=== PATIENT | female | born 1995 | race Two or more races ===

== ENCOUNTER 2018-04-15 06:00 | Inpatient (IN) | payer OTHER ==
[2018-04-15] MEDS ORDERED: PENICILLIN G POTASSIUM 5,000,000 UNIT in DEXTROSE 5% IN WATER 100 ML IVPB STA ×2 (06:14)
[2018-04-15] MEDS ORDERED: METHYLERGONOVINE 0.2 MG/ML 1 ML AMP IM PRN (06:14)
[2018-04-15] MEDS ORDERED: LIDOCAINE 0.5% (PF) 5 MG/ML (50 ML SDV) SQ PRN (06:14)
[2018-04-15] MEDS ORDERED: CARBOPROST TROMETHAMINE 250 MCG/ML 1 ML AMP IM PRN (06:14)
[2018-04-15] MEDS ORDERED: OXYTOCIN 10 UNIT/ML 1 ML VIAL IM PRN (06:14)
[2018-04-15] MEDS ORDERED: TERBUTALINE 1 MG/ML VIAL SQ PRN (06:14)
[2018-04-15] MEDS ORDERED: OXYTOCIN 20 UNITS/1000 ML NS 1,000 ML IV SCH (06:15)
[2018-04-15] MEDS: LACTATED RINGERS 1,000 ML IV SCH ×5 (06:17→17:39)
[2018-04-15 06:21] VITALS: BMI 40.4
[2018-04-15 06:46] LABS: Basophils % (A) 0 %; Eosinophils # (A) 0.1 k/uL (0-0.7); Eosinophils % (A) 1 %; HCT 38.5 % (34.0-46.0); HGB 13.3 gm/dL (11.4-16.0); Lymphocytes # (A) 1.8 k/uL (1.0-4.8); Lymphocytes % (A) 20 %; MCHC 34.6 g/dL (31.0-37.0); MCV 89.5 fL (80.0-100.0); Mean Platelet Volume 7.9; Monocytes # (A) 0.5 k/uL (0-1.0); Monocytes % (A) 5 %; Neutrophils # (A) 6.5 k/uL (1.3-7.7); Neutrophils % (A) 73 %; Platelet Count 241 k/uL (150-450); RDW 13.7 % (11.5-15.5); WBC 8.9 k/uL (3.8-10.6)
--- NOTE | 2018-04-15 07:13 | P.HPOB ---
History of Present Illness H&P Date: 04/15/18 This is a 23-year-old white female 1 para 0 EDC 04/19/2018 at 39-3/7 weeks' gestation. Patient presents today for induction electively, mild spontaneous uterine contractions are noted. Cervix is favorable. Fetus is been active throughout the . She denies vaginal bleeding or fluid leakage. Past medical history is significant for asthma, fibromyalgia, and obesity. Past surgical history is negative. Current medications vitamins daily, albuterol inhaler as needed. ALLERGIES none known. Family history significant strongly for diabetes, hypercholesterolemia, hypertension. Also significant for lung cancer. Social history patient has never been a smoker, she denies alcohol or drug use. She is and her 's presence. Obstetric history is significant for blood type A+, rubella status immune. VDRL testing, urine culture, hepatitis B surface antigen, HIV testing, gonorrhea and chlamydia cultures all negative. One-hour Glucola elevated at 172 , 3 hour GTT within normal limits. Group B strep cultures positive. On exam this is a pleasant young female, 4 foot 11 inches, 200 pounds, blood pressure 130/71 on admission, vital signs are otherwise stable. The general physical exam is within normal limits. The cervix is 4 cm dilated, 70% effaced , -2 station, vertex presentation. Artificial amniorrhexis reveals dark but thin meconium-stained fluid, non-particulate. Internal scalp lead is applied. heart rate is in the 140s with frequent accelerations consistent with reactive NST. Uterine contractions are occurring every 2 minutes apart. Impression: 39-3/7 weeks intrauterine , here for an induction with favorable cervix. Meconium-stained fluid, reassuring heart tones. Plan: Penicillin G prophylaxis for history of group B strep positive cultures. Oxytocin augmentation per hospital protocol. Close maternal and surveillance. Anticipate normal spontaneous vaginal delivery. Review of Systems Constitutional: Reports as per HPI Past Medical History Past Medical History: Asthma, Fibromyalgia History of Any Multi-Drug Resistant Organisms: None Reported Past Surgical History: No Surgical Hx Reported Past Anesthesia/Blood Transfusion Reactions: No Reported Reaction Past Psychological History: No Psychological Hx Reported Smoking Status: Never smoker Past Alcohol Use History: None Reported Past Drug Use History: None Reported - Past Family History Father Family Medical History: Hypertension, Osteoarthritis (OA) Additional Family Medical History / Comment(s): type 2 diabetes Mother Family Medical History: Asthma, Cancer, Hyperlipidemia, Osteoarthritis (OA) Additional Family Medical History / Comment(s): type 2 diabetes Sister(s) Family Medical History: Hypertension Additional Family Medical History / Comment(s): type 2 diabetes Brother(s) Family Medical History: Hypertension Additional Family Medical History / Comment(s): type 2 diabetes Medications and Allergies Home Medications Medication Instructions Recorded Confirmed Type Albuterol Sulfate [Proair Hfa] 2 puff INHALATION Q4HR PRN 04/21/14 04/15/18 History Allergies Allergy/AdvReac Type Severity Reaction Status Date / Time Mushroom Allergy Severe Anaphylaxis Verified 04/15/18 06:23 Exam Vital Signs Temp Pulse Resp BP Pulse Ox 04/15/18 06:16 98.1 F 83 16 130/71 98 Intake and Output 04/14/18 04/15/18 04/15/18 22:59 06:59 14:59 Other: Weight 90.718 kg See dictation under HPI. Results Result Diagrams: 04/15/18 06:20 Assessment and Plan Assessment: 39-3/7 weeks intrauterine , meconium-stained fluid, elective induction , positive group B strep cultures. Plan: Penicillin G prophylaxis per hospital protocol. Close maternal and surveillance. I have reviewed with the patient analgesic options to be utilized as needed. Continue oxytocin per hospital protocol. Anticipate normal spontaneous vaginal delivery. Time with Patient: Less than 30
[2018-04-15] MEDS ORDERED: ROPIVACAINE 100 MG, fentaNYL (PF) 200 MCG in SODIUM CHLORIDE 0.9% 76 ML EPIDURAL ONE (09:36)
[2018-04-15] MEDS: PENICILLIN G POTASSIUM 2,500,000 UNIT in DEXTROSE 5% IN WATER 100 ML IVPB SCH ×4 (11:09→14:09)
[2018-04-15] MEDS ORDERED: METHYLERGONOVINE 0.2 MG/ML 1 ML AMP ONE (15:00)
[2018-04-15] MEDS ORDERED: ONDANSETRON 4 MG/2 ML VIAL ONE (15:00)
[2018-04-15] MEDS ORDERED: MORPHINE SULFATE (PF) 0.3 MG/0.3 ML SYR ONE (15:00)
[2018-04-15] MEDS ORDERED: OXYTOCIN 10 UNIT/ML 1 ML VIAL ONE (15:00)
[2018-04-15] MEDS ORDERED: diphenhydrAMINE 25 MG CAP PO PRN (15:48)
[2018-04-15] MEDS ORDERED: HYDROcodone/APAP 5-325MG 1 EACH TAB PO PRN (15:48)
[2018-04-15] MEDS ORDERED: diphenhydrAMINE 50 MG CAP PO PRN (15:48)
[2018-04-15] MEDS ORDERED: NALOXONE 0.4 MG/ML 1 ML VIAL IV PRN (15:48)
[2018-04-15] MEDS ORDERED: METOCLOPRAMIDE 5 MG/ML 2 ML VIAL IVP PRN (15:48)
[2018-04-15] MEDS ORDERED: ONDANSETRON 4 MG/2 ML VIAL IVP PRN (15:48)
[2018-04-15] MEDS ORDERED: ZOLPIDEM 5 MG TAB PO PRN (15:48)
[2018-04-15] MEDS ORDERED: diphenhydrAMINE 50 MG/ML 1 ML VIAL IVP PRN ×2 (15:48)
[2018-04-15] MEDS ORDERED: ACETAMINOPHEN TAB 325 MG TAB PO PRN (15:48)
--- NOTE | 2018-04-15 15:48 | P.OP ---
Date of Procedure: 04/15/18 Preoperative Diagnosis: Arrest of dilation and descent, 39-3/7 weeks, meconium-stained fluid. Postoperative Diagnosis: Liveborn female infant, occiput posterior, nuchal cord 1 Procedure(s) Performed: Primary low transverse section Anesthesia: spinal Surgeon: Mindy العلي Clinical Appeals Reviewer #1: Anh Lacy Estimated Blood Loss (ml): 600 IV fluids (ml): 400 Urine output (ml): 100 Pathology: other (Placenta) Condition: stable Disposition: PACU Operative Findings: Liveborn female , meconium-stained, occiput posterior, darkly stained placenta, nuchal cord 1. Description of Procedure: This is a 23-year-old female 1 para 0 EDC 04/19/2018 at 39-3/7 weeks' gestation. Patient was admitted for induction for favorable cervix. is remarkable for positive group B strep cultures, rubella status immune, blood type A positive. Please see dictated history and physical for details. Artificial amniorrhexis revealed darkly stained meconium fluid. Internal scalp lead was applied. Pcaq-rl-[id number] variability was excellent, however patient did have episodes of late decelerations that responded to position changes and fluid bolus. She requested an epidural and this was placed without difficulty. She became 5 cm dilated, 80-90% effaced, -2 station. No further cervical dilation was noted over the course of 4 hours observation. Uterine contractions continued every 2-3 minutes apart of strong intensity. The decision was made to proceed with primary low transverse section. The previously placed epidural was topped off. Patient had been given 3 doses total of penicillin G for group B strep prophylaxis. 2 g of Ancef were given preoperatively. The abdomen was prepped and draped in the usual sterile fashion. Stout catheter placed to direct drainage. Appropriate timeout is performed. A low transverse skin incision is made in this is carried down through the subcutaneous tissue to the fascia. Fascia is isolated, scored and extended bilaterally with curved Rodriguez scissors. Peritoneum is next identified and incised, there is no bowel or bladder involvement. Bladder blade is placed over the dome of the bladder and at all times the bladder is Well from the operative field to avoid bladder and/or ureteral injury. Uterus is entered in the transverse position, the incision is extended bluntly. 's head is delivered straight occiput posterior with a large amount of It. The oropharynx, nasopharynx, and external nares were all bulb suctioned on the abdomen. Patient is officially delivered of a liveborn female at 1510 hours. The umbilical cord is doubly clamped and ligated, she is handed to waiting nurses for evaluation where scores of 8 and 9 at one and 5 minutes respectively are given. The placenta is delivered manually, it is inspected and noted to be intact with trivascular cord at 1511 hours. At this time the uterus is externalized. It is wiped clean with a sterile sponge to avoid any retained products of conception. It is somewhat boggy, and therefore in addition to the Pitocin, Methergine is given IM 1. Uterine massage was also performed. Uterine incision is grasped with Moon clamps and the uterus is closed in a two-step fashion. First layer is running locking, second layer indicated, both with 0 Vicryl. Excellent hemostasis is noted. Bilateral tubes and ovaries are inspected, and noted to be within the normal limits. Uterus is gently placed back into the abdominal cavity after the abdomen is suctioned with suction on guard. Bilateral gutters are inspected and cleaned. Peritoneum was allowed to close by secondary intention. Fascia is closed in a running stitch of 0 Vicryl with over ligation in the midline. Subcutaneous tissue is generously irrigated. It is clean and dry. 3-0 Vicryl is used in a running manner to reapproximate the subcutaneous tissue. Subcuticular stitch of 4-0 undyed Vicryl issues for final skin closure. Steri-Strips and Mastisol are applied to the wound. Uterus is massaged. All sponge needle and enhancement counts are correct. Stout is noted to be draining clear urine. Patient is brought back to recovery room in stable condition with a blood pressure 116/70, pulse 86, 96% O2 saturation.
[2018-04-15] MEDS: SENNOSIDES-DOCUSATE SODIUM 1 EACH TAB PO SCH (20:04)
[2018-04-16] MEDS: LACTATED RINGERS 1,000 ML IV SCH ×2 (01:26→19:28)
[2018-04-16] MEDS: KETOROLAC 30 MG/ML 1 ML VIAL IVP PRN ×2 (04:48→13:29)
[2018-04-16 08:28] LABS: Basophils % (A) 0 %; Eosinophils % (A) 0 %; HGB 10.7 gm/dL (11.4-16.0); Lymphocytes # (A) 1.5 k/uL (1.0-4.8); Lymphocytes % (A) 11 %; MCH 30.3 pg (25.0-35.0); MCHC 33.4 g/dL (31.0-37.0); MCV 90.5 fL (80.0-100.0); Mean Platelet Volume 8.4; Monocytes # (A) 0.5 k/uL (0-1.0); Monocytes % (A) 4 %; Neutrophils # (A) 11.6 k/uL (1.3-7.7); Neutrophils % (A) 84 %; Platelet Count 180 k/uL (150-450); RBC 3.54 m/uL (3.80-5.40); RDW 13.9 % (11.5-15.5); WBC 13.8 k/uL (3.8-10.6)
[2018-04-16] MEDS: SENNOSIDES-DOCUSATE SODIUM 1 EACH TAB PO SCH ×2 (08:46→19:21)
--- NOTE | 2018-04-16 10:01 | P.PN ---
Subjective Progress Note Date: 04/16/18 Principal diagnosis: Postoperative day #1 Slept well. Positive flatus. Minimal pain. Objective - Vital Signs Vital signs: Vital Signs Temp 98.0 F 04/16/18 04:00 Pulse 84 04/16/18 04:00 Resp 16 04/16/18 04:00 BP 114/68 04/16/18 04:00 Pulse Ox 96 04/16/18 04:00 Intake & Output 04/15/18 04/16/18 04/16/18 18:59 06:59 18:59 Intake Total 400 Output Total 700 400 Balance -300 -400 Intake: IV 400 Output: Urine 100 400 Estimated Blood Loss 600 Other: Voiding Method Indwelling Catheter Indwelling Catheter - Constitutional General appearance: Present: average body habitus, cooperative, obese - EENT Eyes: Present: PERRLA ENT: Present: hearing grossly normal - Respiratory Respiratory: bilateral: CTA - Cardiovascular Rhythm: regular - Gastrointestinal General gastrointestinal: Present: normal bowel sounds - Genitourinary Genitourinary Comment(s): Incision clean and dry, intact. Fundus firm, midline, symmetric, 18 week size. - Integumentary Integumentary: Present: normal, normal turgor - Neurologic Neurologic: Present: CNII-XII intact - Musculoskeletal Musculoskeletal: Present: gait normal, strength equal bilaterally - Psychiatric Psychiatric: Present: A&O x's 3, appropriate affect, intact judgment & insight - Labs CBC & Chem 7: 04/16/18 07:22 Labs: Abnormal Lab Results - Last 24 Hours (Table) 04/16/18 Range/Units 07:22 WBC 13.8 H (3.8-10.6) k/uL RBC 3.54 L (3.80-5.40) m/uL Hgb 10.7 L (11.4-16.0) gm/dL Hct 32.0 L (34.0-46.0) % Neutrophils # 11.6 H (1.3-7.7) k/uL Assessment and Plan Assessment: Doing well postoperative day #1. Plan: Advance diet and activity. May DC IV. Continue postoperative care. Likely discharge home tomorrow. Time with Patient: Less than 30
[2018-04-16] MEDS: IBUPROFEN 600 MG TAB PO PRN (19:20)
[2018-04-17] MEDS: IBUPROFEN 600 MG TAB PO PRN ×2 (02:03→12:08)
[2018-04-17 08:15] VITALS: BP 131/73; PULSE 83; RESP 16; TEMP 97.9
[2018-04-17] MEDS: SENNOSIDES-DOCUSATE SODIUM 1 EACH TAB PO SCH (08:22)
--- NOTE | 2018-04-17 08:29 | P.DS ---
Providers Date of admission: 04/15/18 06:14 Expected date of discharge: 04/17/18 Attending physician: Mindy العلي Primary care physician: Juan Antonio Frey - Discharge Diagnosis(es) (1) Term Current Visit: Yes Status: Acute (2) Arrest of dilation, delivered, current hospitalization Current Visit: Yes Status: Acute (3) Arrest of descent, delivered, current hospitalization Current Visit: Yes Status: Acute (4) Status post section Current Visit: Yes Status: Acute Hospital Course: The patient is a 23-year-old 1 para 0 admitted at 39-3/7 weeks by good dating parameters perches admitted for induction with all signs reassuring. Her has been essentially uncomplicated. On labor and delivery, she had Pitocin started followed by artificial rupture of membranes of 4 meconium- stained fluid. She made progress to approximate 5 cm at which time she arrested dilation and descent for multiple hours. She was taken the operating room where she was delivered of a viable 7 lbs. 4 oz. baby girl with Apgars of 8 at 1 minute and 9 at 5 minutes. Her postoperative course was unremarkable with vital signs being stable and her temperature was afebrile throughout. She was deemed stable for discharge on postoperative day #2 was discharged home to follow-up in the office in 2 weeks for an incision check and 6 weeks routinely. Discharge instructions included calling for any significantly increased bleeding or foul-smelling lochia, significantly increased fever abdominal pain, perineal complaints, breast complaints, incisional complaints, or anything else that concerned her. She was additionally instructed to have nothing in the vagina for at least 6 weeks time to include intercourse and to abstain from any heavy lifting over the same period of time. She was last instructed to do no driving until off of all pain medications or 2 weeks' time, whichever came first. She understood her instructions and agrees to follow up as noted above. Discharge medications included continue vitamins as she has opted to breast-feed. She otherwise was provided with a prescription for Tylenol 3, 1-2 by mouth every 6 hours when necessary pain, #20 dispensed with no refills. Maternal blood type is A+ and rubella status is immune. Discharge hemoglobin and hematocrit were 10.7 and 32.0 respectively. Procedures: #1. Pitocin induction #2. Antibiotic prophylaxis #3. Artificial rupture of membranes #4. Epidural analgesia #5. Primary low-transverse section Patient Condition at Discharge: Stable Plan - Discharge Summary New Discharge Prescriptions: No Action Albuterol Sulfate [Proair Hfa] 2 puff INHALATION Q4HR PRN PRN Reason: Shortness Of Breath Discharge Medication List Albuterol Sulfate [Proair Hfa] 2 puff INHALATION Q4HR PRN 04/21/14 [History] Follow up Appointment(s)/Referral(s): Mindy العلي MD [STAFF PHYSICIAN] - 2 Weeks Discharge Disposition: HOME SELF-CARE
== END 2018-04-17 12:41 | disposition home or self-care (01) | DRG 765 ==
LOC: 4FBP 06:00 → OBSVTOIN 06:14
PROVIDERS: ADMIT Obstetrics & Gynecology; ATTEND Obstetrics & Gynecology
PROC: 3E033VJ Introduction of Other Hormone into Peripheral Vein, Percutaneous Approach (ICD-10-PCS; principal; 2018-04-15 15:00)
PROC: 00HU33Z Insertion of Infusion Device into Spinal Canal, Percutaneous Approach (ICD-10-PCS; principal; 2018-04-15 15:00)
PROC: 10907ZC Drainage of Amniotic Fluid, Therapeutic from Products of Conception, Via Natural or Artificial Opening (ICD-10-PCS; principal; 2018-04-15 15:00)
PROC: 3E0R3NZ Introduction of Analgesics, Hypnotics, Sedatives into Spinal Canal, Percutaneous Approach (ICD-10-PCS; principal; 2018-04-15 15:00)
PROC: 10D00Z1 Extraction of Products of Conception, Low, Open Approach (ICD-10-PCS; principal; 2018-04-15 15:00)
PROC: 4A0H7CZ Measurement of Products of Conception, Cardiac Rate, Via Natural or Artificial Opening (ICD-10-PCS; principal; 2018-04-15 15:00)
DX: O62.0 Primary inadequate contractions (principal); Z68.41 Body mass index [BMI] 40.0-44.9, adult; Z37.0 Single live birth; O77.0 Labor and delivery complicated by meconium in amniotic fluid; O32.4XX0 Maternal care for high head at term, not applicable or unspecified; O62.1 Secondary uterine inertia; O69.81X0 Labor and delivery complicated by cord around neck, without compression, not applicable or unspecified; Z3A.39 39 weeks gestation of pregnancy; Z82.49 Family history of ischemic heart disease and other diseases of the circulatory system; Z82.5 Family history of asthma and other chronic lower respiratory diseases; Z83.3 Family history of diabetes mellitus; O99.824 Streptococcus B carrier state complicating childbirth; J45.909 Unspecified asthma, uncomplicated; O99.52 Diseases of the respiratory system complicating childbirth; Z91.018 Allergy to other foods; O76 Abnormality in fetal heart rate and rhythm complicating labor and delivery; O99.214 Obesity complicating childbirth; E66.9 Obesity, unspecified
CPT/HCPCS: 85025; 86850; 86900; 86901; 88307

== ENCOUNTER 2020-09-26 20:39 | Emergency (ER) | payer OTHER ==
[2020-09-26 20:49] VITALS: BP 126/80; PULSE 99; RESP 18; TEMP 98.8
[2020-09-26] MEDS ORDERED: SODIUM CHLORIDE 0.9% 1,000 ML IV STA (21:10)
[2020-09-26] MEDS ORDERED: KETOROLAC 15 MG/ML 1 ML VIAL IVP STA (21:10)
[2020-09-26] MEDS ORDERED: diphenhydrAMINE 50 MG/ML 1 ML VIAL IVP STA (21:10)
[2020-09-26] MEDS ORDERED: ONDANSETRON 4 MG/2 ML VIAL IVP STA (21:10)
--- NOTE | 2020-09-26 22:04 | ED ---
Headache HPI - General Chief Complaint: Headache Stated Complaint: Fall, headache Time Seen by Provider: 09/26/20 21:04 Mode of arrival: ambulatory Limitations: no limitations - History of Present Illness Initial Comments: Patient is a 25-year-old female presenting to the emergency department with concerns of a headache for the last 3-4 days. Patient states she did slip and fall on her stairs about 3 days ago, she landed right on her behind. She did not hit her head or her neck. She is not on blood thinners, there was no loss of consciousness. Patient states she has some bruising to her behind in her low back. She states that ever since then she's been having a headache. She does have history of headaches. She denies any nausea or vomiting, no blurry vision. Her appetite has been low. She is able to drink fluids. He denies any fever or chills, no chest pain or shortness of breath. She denies any other injuries from this fall. She has no further complaints. Upon arrival to the ER, her vital signs are stable. She denies being at this time. - Related Data Home Medications Medication Instructions Recorded Confirmed Albuterol Sulfate [Proair Hfa] 2 puff INHALATION Q4HR PRN 04/21/14 04/15/18 Allergies Allergy/AdvReac Type Severity Reaction Status Date / Time Mushroom Allergy Severe Anaphylaxis Verified 09/26/20 20:49 Review of Systems ROS Statement: Those systems with pertinent positive or pertinent negative responses have been documented in the HPI. ROS Other: All systems not noted in ROS Statement are negative. Past Medical History Past Medical History: Asthma, Fibromyalgia History of Any Multi-Drug Resistant Organisms: None Reported Past Surgical History: Section Past Anesthesia/Blood Transfusion Reactions: No Reported Reaction Past Psychological History: No Psychological Hx Reported Smoking Status: Never smoker Past Alcohol Use History: None Reported Past Drug Use History: None Reported - Past Family History Father Family Medical History: Hypertension, Osteoarthritis (OA) Additional Family Medical History / Comment(s): type 2 diabetes Mother Family Medical History: Asthma, Cancer, Hyperlipidemia, Osteoarthritis (OA) Additional Family Medical History / Comment(s): type 2 diabetes Sister(s) Family Medical History: Hypertension Additional Family Medical History / Comment(s): type 2 diabetes Brother(s) Family Medical History: Hypertension Additional Family Medical History / Comment(s): type 2 diabetes General Exam - General Exam Comments Initial Comments: GENERAL: Patient is well-developed and well-nourished. Patient is nontoxic and in no acute distress. HEAD: Atraumatic, normocephalic. EYES: Pupils equal round and reactive to light, extraocular movements intact, sclera anicteric, conjunctiva are normal. Eyelids were unremarkable. ENT: TMs normal, nares patent, oropharynx clear without exudates. Moist mucous membranes. NECK: Normal range of motion, supple without lymphadenopathy or JVD. LUNGS: Unlabored respirations. Breath sounds clear to auscultation bilaterally and equal. No wheezes rales or rhonchi. HEART: Regular rate and rhythm without murmurs, rubs or gallops. ABDOMEN: Soft, nontender, normoactive bowel sounds. No guarding, no rebound. No masses appreciated. : Deferred MUSCULOSKELETAL: Normal extremities with adequate strength and normal range of motion, no pitting or edema. No clubbing or cyanosis. NEUROLOGICAL: Patient is alert and oriented x 3. Motor and sensory are also intact. Cranial nerves II through XII grossly intact. Symmetrical smile. Normal speech, normal gait. PSYCH: Normal mood, normal affect. SKIN: Warm, Dry, normal turgor, no rashes or lesions noted. Limitations: no limitations Course Vital Signs 09/26/20 20:43 Temperature 98.8 F Pulse Rate 99 Respiratory 18 Rate Blood Pressure 126/80 O2 Sat by Pulse 98 Oximetry Medical Decision Making - Medical Decision Making Patient is a 25-year-old female here with a headache for the past 3 days. She did have slip and fall a few days ago as well, she did not hit her head, she landed mostly on her behind. She does have history of headaches. Her exam is unremarkable, no acute neuro deficits. Her vitals are stable. Patient refuses any IV medications until after computed tomography scan. Computed tomography scan is normal. I discussed these findings with the patient, patient continued to refuse any IV medications other than her fluids. She wants to try [id number] medications instead. I did recommend Excedrin. Patient is stable for discharge. Patient is in agreement with this plan of care. Return parameters were discussed with the patient and they verbalized understanding. Case discussed with Dr. Haynes Disposition Clinical Impression: Headache Disposition: HOME SELF-CARE Condition: Stable Instructions (If sedation given, give patient instructions): Acute Headache (ED) Additional Instructions: Please return to the Emergency Department if symptoms worsen or any other concerns. I recommend Excedrin Extra Strength for headache. Be sure to drink plenty of fluids and rest. Follow-up with your PCP. Is patient prescribed a controlled substance at d/c from ED?: No Referrals: Juan Antonio Frey DO [Primary Care Provider] - 1-2 days Time of Disposition: 22:43
--- NOTE | 2020-09-26 22:15 | CT ---
EXAMINATION TYPE: CT brain wo con DATE OF EXAM: 09/26/2020 COMPARISON: 07/21/2014 HISTORY: Headache x4 days after fall. CT DLP: 1051.4 mGycm Automated exposure control for dose reduction was used. The ventricles and sulci appear normal. There is no mass effect nor midline shift. There is no sign o f intracranial hemorrhage. Calvarium is intact. Skull base is intact. IMPRESSION: Normal unenhanced head CT scan. No change.
== END 2020-09-26 22:48 | disposition home or self-care (01) ==
LOC: EC 20:39
DX: R51.9 Headache, unspecified (principal); J45.909 Unspecified asthma, uncomplicated; M79.7 Fibromyalgia
CPT/HCPCS: 70450; 99284

== ENCOUNTER → 2022-02-12 | Outpatient (CLI) | payer OTHER ==
--- NOTE | 2022-02-13 09:11 | US ---
EXAMINATION TYPE: US pelvis complete transvag DATE OF EXAM: 02/12/2022 COMPARISON: NONE CLINICAL HISTORY: 26-year-old female N92.6 IRREGULAR MENSTRUATION. TECHNIQUE: Transabdominal sonographic images of the pelvis were acquired. Transvaginal sonographic i mages were medically necessary to better assess the anatomy. Date of LMP: 02-11-22 FINDINGS: EXAM MEASUREMENTS: Uterus: 7.1 x 3.5 x 4.1 cm Endometrial Stripe: 0.6 cm Right Ovary: 3.4 x 2.1 x 2.1 cm for a volume of 7.5 mL. Left Ovary: 3.0 x 2.0 x 1.5 cm for a volume of 4.5 mL. 1. Uterus: Retroverted and otherwise wnl 2. Endometrium: wnl on transabdominal scanning. Most of the endometrium is obscured on transvaginal scanning. 3. Right Ovary: wnl with follicular change 4. Left Ovary: wnl with follicular change 5. Bilateral Adnexa: wnl 6. Posterior cul-de-sac: Mild cul-de-sac free fluid , likely physiologic. IMPRESSION: 1. Endometrial stripe measuring 6 mm on transabdominal scanning. 2. Follicular change in both ovaries. 3. Mild cul-de-sac free fluid likely physiologic.
== END | disposition home or self-care (01) ==
LOC: RADUSWWP 15:04
PROVIDERS: ATTEND Family Medicine
DX: N92.6 Irregular menstruation, unspecified (principal)
CPT/HCPCS: 76830; 76856

== ENCOUNTER → 2022-04-02 | Outpatient (CLI) | payer OTHER ==
--- NOTE | 2022-04-02 10:50 | P.PN ---
Subjective DATE: 04/02/2022 FOLLOW UP VISIT. Patient with obstructive sleep apnea hypopnea syndrome return to sleep center for follow-up visit. Recently patient had sleep study which documented obstructive sleep apnea hypopnea syndrome. Patient was initiated on PAP therapy and today is first visit after treatment was started. Patient was able to use PAP equipment every night for the whole night. The patient does not have significant problems with the mask, PAP pressure and humidification. Karthaus sleepiness scale is 4. During consultation Karthaus Sleepiness Scale was 20. Significant improvements of alertness while patient using CPAP equipment. I checked information from PAP unit. PAP unit pressure 5-10 average 9.6 cm H2O. Usage is 87 % for more then 4 hours, average 7.25 hours per night. Leak is 0.3 l/m, which is in great range. Apnea Hypopnea Index is 0.6, which is normal. MEDICATIONS: none During physical exam: GENERAL: A pleasant patient without any distress. VITAL SIGNS: BP 110/70, HR 62, RR 16, weight 217, temperature 98.1, oxygen saturation at room air 99. HEENT: PERRLA, EOMI.low position of soft palate, Mallapati 3 . NECK: Supple. No JVD. LUNGS: Clear to percussion and to auscultation. Good air exchange. No wheezing or rhonchi. HEART: S1, S2 regular. ABDOMEN: Soft and nontender. Obese EXTREMITIES: No clubbing or cyanosis. FURNITURE STAINER: Awake, alert, and oriented x3. No focal deficit. Impressions: 1. Obstructive sleep apnea-hypopnea syndrome. Patient demonstrated great compliance with treatment, benefiting from treatment. 2. Obesity. 3. Asthma. 4. Fibromyalgia. 5. Episodes of headaches. 6. Status post . Plan: 1. Continue using PAP equipment every night for the whole night. 2. To change air filter at least 1-2 times per month. 3. PAP unit should stay lower then position of the head. 4. Advised patient to remove all remaining water from humidifier canister daily and make it dry after each usage. Refill canister with fresh distilled water before each usage. 5. Sleep hygiene with regular time in bed for at least 8 hours. 6. Precautions related to driving. No driving if feel any sleepiness. 7. I will maintain prescription for PAP supplies including mask, tube, filters. 8. Follow up visit in 6 months or earlier if patient has any problems. 9. Watching and losing weight. Thank you very much for allowing me to participate in the management of your patient. Beto Morales MD, PhD, FAASM. Diplomat of [place] [employer], Sleep Medicine Board by [place] [employer] Supervisor of [facility] [place]
== END ==
LOC: SLEEP 10:27
PROVIDERS: ATTEND Internal Medicine
DX: G47.33 Obstructive sleep apnea (adult) (pediatric) (principal); E66.9 Obesity, unspecified; J45.909 Unspecified asthma, uncomplicated; M79.7 Fibromyalgia; Z87.59 Personal history of other complications of pregnancy, childbirth and the puerperium; R51.9 Headache, unspecified; Z99.89 Dependence on other enabling machines and devices; Z91.018 Allergy to other foods

== ENCOUNTER → 2023-01-22 | Outpatient (CLI) | payer OTHER ==
--- NOTE | 2023-01-22 14:29 | P.PN ---
Subjective DATE: 01/22/2023 FOLLOW UP VISIT. Patient with obstructive sleep apnea hypopnea syndrome return to sleep center for follow-up visit. Information from previous visit have been reviewed. Patient is using PAP equipment every night for the whole night, getting PAP supplies in time. The patient does not have significant problems with the mask, PAP unit and humidification. Patient experiencing symptoms of excessive daytime sleepiness. [place] sleepiness scale is 20, which is extremely high. During previous visit in September 2022 [place] Sleepiness Scale was 12.. I checked information from PAP unit. PAP unit pressure 5-10, average 9.6 cm H2O. Usage is 100% and 87 % for more then 4 hours, average 6 hours per night. Leak is 4.2 l/m, which is in acceptable range. Apnea Hypopnea Index is 0.7, which is normal. MEDICATIONS:1. Albuterol inhaler as needed During physical exam: GENERAL: A pleasant patient without any distress. VITAL SIGNS: BP 108/69, HR 87, RR 16, weight 219.0, temperature 97.1, oxygen saturation at room air 98 % . HEENT: PERRLA, EOMI.low position of soft palate, Mallapati 3 . NECK: Supple. No JVD. LUNGS: Clear to percussion and to auscultation. Good air exchange. No wheezing or rhonchi. HEART: S1, S2 regular. ABDOMEN: Soft and nontender. Obese EXTREMITIES: No clubbing or cyanosis. MANAGER PEDIATRIC: Awake, alert, and oriented x3. No focal deficit. Impressions: 1. Obstructive sleep apnea-hypopnea syndrome. Patient demonstrated great compliance with treatment, benefiting from treatment. 2. Patient has symptoms of excessive daytime sleepiness, while using CPAP equipment every night. Differential diagnosis would include narcolepsy and idiopathic hypersomnia. 3. Obesity, body mass index 44.2. 4. Asthma. 5. History of fibromyalgia. 6. Episodes of headaches. 7. Status post . Plan: 1. Continue using PAP equipment every night for the whole night. 2. Multiple sleep latency test for objective for ablation patient symptoms of excessive daytime sleepiness will be done after night on CPAP treatment. 3. PAP unit should stay lower then position of the head. 4. Advised patient to remove all remaining water from humidifier canister daily and make it dry after each usage. Refill canister with fresh distilled water before each usage. 5. Sleep hygiene with regular time in bed for at least 8 hours. 6. Precautions related to driving. No driving if feel any sleepiness. 7. I will maintain prescription for PAP supplies including mask, tube, filters. 8. Follow up visit after multiple sleep latency test to discuss results and plan of treatment. 9. Watching and losing weight. Thank you very much for allowing me to participate in the management of your pat ient. Beto Morales MD, PhD, FAASM. Diplomat of [place] [employer], Sleep Medicine Board by [employer] [facility] [place]
== END ==
LOC: 3 N SLEEP 13:42
PROVIDERS: ATTEND Internal Medicine
DX: G47.33 Obstructive sleep apnea (adult) (pediatric) (principal); J45.909 Unspecified asthma, uncomplicated; R51.9 Headache, unspecified; E66.9 Obesity, unspecified; M79.7 Fibromyalgia; Z68.41 Body mass index [BMI] 40.0-44.9, adult; Z98.890 Other specified postprocedural states; Z99.89 Dependence on other enabling machines and devices; Z79.51 Long term (current) use of inhaled steroids; Z91.018 Allergy to other foods
CPT/HCPCS: 99212

== ENCOUNTER → 2024-07-18 | Outpatient (CLI) | payer OTHER ==
[2024-07-18 14:36] VITALS: BP 115/80; PULSE 88; RESP 18; TEMP 98.1
--- NOTE | 2024-07-18 15:26 | P.PROGSL ---
Subjective DATE: 07/18/2024 FOLLOW UP VISIT. Patient with obstructive sleep apnea hypopnea syndrome return to sleep center for follow-up visit. Information from previous visit have been reviewed. Multiple sleep latency test about 1 year ago showed short sleep latency 7.3 minutes with 1 sleep onset REM, which possibly may indicate narcolepsy Patient is using PAP equipment every night for the whole night, getting PAP supplies in time. The patient does not have significant problems with the mask, PAP unit and humidification. [place] sleepiness scale is 13. I checked information from PAP unit. PAP unit pressure 5-10, average 9.4 cm H2O. Usage is 100% and 87% for more then 4 hours, average 6.5 hours per night. Leak is 11.7 l/m, which is in acceptable range. Apnea Hypopnea Index is 0.9, which is normal. MEDICATIONS albuterol. During physical exam: GENERAL: A pleasant patient without any distress. VITAL SIGNS: Please see below, weight is 224.2 lbs, BMI 44.9. HEENT: PERRLA, EOMI.low position of soft palate, Mallapati 3. NECK: Supple. No JVD. LUNGS: Clear to percussion and to auscultation. Good air exchange. No wheezing or rhonchi. HEART: S1, S2 regular. ABDOMEN: Soft and nontender. Obese EXTREMITIES: No clubbing or cyanosis. FOLDED CLOTH TAPER: Awake, alert, and oriented x3. No focal deficit. Impressions: 1. Obstructive sleep apnea-hypopnea syndrome. Patient demonstrated great compliance with treatment, benefiting from treatment. 2. Multiple sleep latency test confirmed sleepiness with mean sleep latency 7.3 minutes with 1 sleep onset REM, which indicate hypersomnia. Differential diagnosis include idiopathic hypersomnia and narcolepsy. 3. Obesity, BMI 44.9, patient increased weight on 5 pounds comparing with previous visit. 4. Asthma. 5. History of fibromyalgia. 6. Episodes of headaches. 7. Status post . Plan: 1. Continue using PAP equipment every night for the whole night. 2. Sleep hygiene with regular time in bed for at least 7.5-8 hours 3. Patient will be started on lowest dose of Adderall 5 mg twice a day to prevent excessive sleepiness. 4. Advised patient to remove all remaining water from humidifier canister daily and make it dry after each usage. Refill canister with fresh distilled water before each usage. 5. Watching and losing weight. 6. Precautions related to driving. No driving if feel any sleepiness. 7. I will maintain prescription for PAP supplies including mask, tube, filters. 8. Follow up visit in 2 months or earlier if patient has any problems. Thank you very much for allowing me to participate in the management of your patient. Beto Morales MD, PhD, FAASM. Diplomat of [place] [employer], Sleep Medicine Board by [employer] [employer] [place] cc: Danielle Frey DO Objective - Vital Signs Vital Signs: Vital Signs Temp 98.1 F 07/18/24 14:34 Pulse 88 07/18/24 14:34 Resp 18 07/18/24 14:34 BP 115/80 07/18/24 14:34 Pulse Ox 95 07/18/24 14:34 FiO2 Intake & Output 07/17/24 07/18/24 07/18/24 18:59 06:59 18:59 Weight 101.661 kg Home Medications: Home Medications Medication Instructions Recorded Confirmed Type Albuterol Sulfate [Proair Hfa] 2 puff INHALATION Q4HR PRN 04/21/14 04/15/18 History
== END ==
LOC: 3 N SLEEP 13:49
PROVIDERS: ATTEND Internal Medicine
DX: G47.33 Obstructive sleep apnea (adult) (pediatric) (principal); G47.10 Hypersomnia, unspecified; E66.9 Obesity, unspecified; J45.909 Unspecified asthma, uncomplicated; R51.9 Headache, unspecified; Z98.890 Other specified postprocedural states; Z87.39 Personal history of other diseases of the musculoskeletal system and connective tissue; Z91.018 Allergy to other foods; Z68.41 Body mass index [BMI] 40.0-44.9, adult; Z79.899 Other long term (current) drug therapy
CPT/HCPCS: 99212